=== PATIENT | male | born 2000 | race Caucasian/White ===

== ENCOUNTER 2022-01-27 14:21 | Emergency (ER) | payer SELFPAY ==
--- OUTSIDE RECORDS SUMMARY | 2022-01-27 14:24 | XMS REPORT | Continuity of Care Document ---
:2000 Author Organization [facility] t Address [address] [place] [address] Care Team Providers Name Role Phone Roma Primary Care Physician Satish CLAIRE Attending Clinician Doctor Unassigned, Name Attending Clinician Unavailable SATISH Attending Clinician Unavailable Isai HEWITT Attending Clinician Unavailable Mikael SALES SERVICE REP, R Attending Clinician Isai HEWITT Admitting Clinician Unavailable Problems Condition Condition Condition Status Onset Resolution Last Treating Co mments Source Name Details Category Date Date Treatment Clinician Date No known No known Disease Unive rs active active ity of problems problems [facility] Allergies, Adverse Reactions, Alerts Allergy Allergy Status Severity Reaction(s) Onset Inactive Treating Comm ents Source Name Type Date Date Clinician NO KNOWN Drug Active Univers ALLERGIE Class ity of S [facility] Social History Social Habit Start Date Stop Date Quantity Comments Source Exposure to Not sure [facility] SARS-CoV-2 (event) Medica l Branch Tobacco use and 2021-11-17 2021-11-17 Never used [facility] exposure 00:00:00 00:00:00 [facility] Sex Assigned At [birth year] [facility] 00:00:00 00:00:00 [facility] Branch Smoking Status Start Date Stop Date Source Unknown if ever smoked [facility] Never smoker [facility] Medications Ordered Filled Start Stop Current Ordering Indication Dosage Frequency Signature Comments Components Source Medication Medication Date Date Medication? Clinician (SIG) Name Name benzonatate Yes [id number] 200mg Take 2 Univers 100 mg 3-04 capsules ity of capsule 00:00: by mouth [place] 00 every 8 Medical (eight) Branch hours as needed for Cough. guaiFENesin 2-0 Yes [id number] 400mg Take 1 Univers 400 mg 3-04 tablet by ity of tablet 00:00: mouth [place] 00 every 4 Medical (four) Branch hours as needed for Cough. fluticasone 2021-0 Yes [id number] 2{puff} Inhale 2 Univers propionate 3-04 Puffs ity of (FLOVENT 00:00: every 12 [facility] [place] [facility]) 220 00 (twelve) Medical mcg/actuati hours. Branch on inhaler levocetiriz 2021-0 Yes [id number] 5mg Take 1 Univers ine 5 mg 3-04 tablet by ity of tablet 00:00: mouth [place] 00 every Medical evening. Branch benzonatate 2021-0 Yes [id number] 200mg Take 2 Univers 100 mg 3-04 capsules ity of capsule 00:00: by mouth [place] 00 every 8 Medical (eight) Branch hours as needed for Cough. guaiFENesin 2021-0 Yes [id number] 400mg Take 1 Univers 400 mg 3-04 tablet by ity of tablet 00:00: mouth [place] 00 every 4 Medical (four) Branch hours as needed for Cough. fluticasone 2021-0 Yes [id number] 2{puff} Inhale 2 Univers propionate 3-04 Puffs ity of (FLOVENT 00:00: every 12 [facility] [place] [facility]) 220 00 (twelve) Medical mcg/actuati hours. Branch on inhaler levocetiriz 2021-0 Yes [id number] 5mg Take 1 Univers ine 5 mg 3-04 tablet by ity of tablet 00:00: mouth [place] 00 every Medical evening. Branch montelukast 2021-0 2021- No 10mg 10 mg, Uni vers (SINGULAIR) 10-07 Oral, ity of tablet 10 02:00: 01:28 ONCE, 1 [place] mg [place] :00 dose, On Medical Fri Branch 10/06/21 at 1999, FILIBERTO albuterol 2021-0 2021- No 2{puff} 2 Puff, U nivers (VENTOLIN) 10-07 Inhalation it y of inhaler 2 02:00: 01[place] P[place] :[place] dose, On Medical Fri Branch 10/06/21 at 1999, FILIBERTO guaiFENesin 2021-0 202- No 200mg 200 mg, U nivers 100 mg/5 mL 10-07 Oral, ity of solution 02:00: 01:27 ONCE, 1 [place] 200 mg 00 :00 dose, On Medical Fri Branch 10/06/21 at 1999, FILIBERTO benzonatate 2021-0 2021- No 100mg 100 mg, U nivers (TESSALON 10-07 Oral, ity of PERLES) 02:00: 01:28 ONCE, 1 [place] capsule 100 00 :00 dose, On Medi keon mg Fri Branch 10/06/21 at 1999, FILIBERTO ibuprofen 2021-0 2021- No 800mg 800 mg, Uni vers (IBU) 10-07 Oral, ity of tablet 800 02:00: 01:28 ONCE, 1 [place] mg 00 :00 dose, On Medical Fri Branch 10/06/21 at 1999, FILIBERTO benzonatate 2021-0 Yes [id number] 100mg Take 1 Univers 100 mg 1-21 capsule by ity of capsule 00:00: mouth 3 [place] 00 (three) Medical times Branch daily as needed for Cough. albuterol 2021-0 Yes [id number] 2{puff} Inhale 2 Univers 90 1-21 Puffs ity of mcg/actuati 00:00: every 4 [place] as on inhaler 00 (four) Medical hours as Branch needed for Wheezing or Shortness of Breath. levocetiriz 2021-0 Yes [id number] 5mg Take 1 Univers ine (XYZAL) 1-21 tablet by ity of 5 mg tablet 00:00: mouth [place] 00 every Medical evening. Branch benzonatate 2021-0 Yes [id number] 100mg Take 1 Univers 100 mg 1-21 capsule by ity of capsule 00:00: mouth 3 [place] 00 (three) Medical times Branch daily as needed for Cough. albuterol 2021-0 Yes [id number] 2{puff} Inhale 2 Univers 90 1-21 Puffs ity of mcg/actuati 00:00: every 4 [place] as on inhaler 00 (four) Medical hours as Branch needed for Wheezing or Shortness of Breath. levocetiriz 2021-0 Yes [id number] 5mg Take 1 Univers ine (XYZAL) 1-21 tablet by ity of 5 mg tablet 00:00: mouth [place] 00 every Medical evening. Branch albuterol Yes [id number] 2{puff} Inhale 2 Univers 90 1-21 Puffs ity of mcg/actuati 00:00: every 4 [place] as on inhaler 00 (four) Medical hours as Branch needed for Wheezing or Shortness of Breath. albuterol Yes [id number] 2{puff} Inhale 2 Univers 90 1-21 Puffs ity of mcg/actuati 00:00: every 4 [place] as on inhaler 00 (four) Medical hours as Branch needed for Wheezing or Shortness of Breath. azithromyci 2021- No [id number] Take 2 Univers n 250 mg 10-06 tablets by ity of tablet 00:00: 05:59 mouth [place] 00 :00 daily for Medical 1 day, Branch THEN 1 tablet daily for 4 days. Vital Signs Vital Name Observation Time Observation Value Comments Source Systolic blood 2021-10-07 02:06:36 116 [facility] Diastolic blood 2021-10-07 02:06:36 89 mm[Hg] [facility] Heart rate 2021-10-07 02:06:36 75 /min [facility] Respiratory rate 2021-10-07 02:06:36 17 /min [facility] Oxygen saturation in 2021-10-07 02:06:36 98 /min [facility] Arterial blood by [facility] Pulse oximetry Branch Body temperature 2021-10-07 00:52:00 36.89 [facility] Body weight 2021-10-07 00:52:00 99.791 kg [facility] Procedures Procedure Date / Time Performing Clinician Source Performed AUTHORIZATION FOR 2021-11-26 06:01:00 [facility]igned, [facility] [place] [facility] Name Medical Branch CONSENT/REFUSAL FOR 2021-11-17 16:20:33 Doctor Unassigned, No [facility] [place] [facility] Name Medical Branch XR CHEST 2 VW 2021-10-07 01:09:47 Antonia Hewitt Rheems o [facility] [place] [facility] NOTICE OF PRIVACY 2021-10-07 00:49:17 Doctor Unassigned, No [facility] [place] PR[facility] Name [facility] Branch CONSENT/REFUSAL FOR 2021-10-07 00:47:37 Doctor Unassigned, [facility] [place] [facility] Name [facility] Encounters Start End Encounter Admission Attending Care Care Encounter Source Date/Time Date/Time Type Type Clinicians Facility Department ID 2022-01-03 2022-01-03 Joe Satish [facility] [id number] Univers 00:00:00 00:00:00 [facility] [id number] it y of [place] [id number] Cy as SIRISHA?BLEA [id number] [address] MEDICAL OFFICE BUILDING 2021-11-26 2021-11-26 Orders Doctor JOSE L [id number] Univers 00:00:00 00:00:00 Only Unassigned, JEROME [id number] [place] [facility] [id number] Cy as [phone] [facility] 009 Branch 2021-11-17 2021-11-17 Outpatient R SATISH [facility] [id number] Univers 10:20:00 10:34:37 PABLO ity of [facility] 2021-11-17 2021-11-17 Orders Doctor DOMINGO [id number] Univers 00:00:00 00:00:00 Only Unassigned, JEROME [id number] [place] [facility] [id number] Cy as [phone] [facility] 009 Branch 2021-10-06 2021-10-06 Emergency X [facility] ERT [id number] Univers 18:55:00 20:10:00 KATTOM ity of [facility] 2021-10-06 2021-10-06 Emergency [facility] [id number] Univers 18:55:00 20:10:00 Antonia BHATTI [id number] i ty [place] [id number] [place] [phone] [place] [address] Branch Results This patient has no known results.
--- NOTE | 2022-01-27 16:10 | RAD REPORT ---
EXAM DESCRIPTION: RAD - Chest Single View - 01/27/2022 4:04 pm CLINICAL HISTORY: Congestion COMPARISON: <Comparisons> FINDINGS: Lines: None. Lungs: Mildly consolidative process in the left upper lobe. Pleural: No significant pleural effusions or pneumothorax. Cardiac: The heart size is within normal limits. Bones: No acute fractures. Other: IMPRESSION: Findings concerning for a mild left upper lobe pneumonia. Recommend 6 week follow-up [facility] [facility] radiograph, however, to ensure resolution.
--- NOTE | 2022-01-27 16:21 | ER ---
Nurse's Notes [facility] Name: Holger Lee Age: 21 yrs Sex: Male : 2000 Arrival Date: 01/27/2022 Time: 14:22 Bed Treatment Private MD: Artie Brandon Diagnosis: Pneumonia, unspecified organism Presentation: 01/27 14:48 Chief complaint: Patient states: cough over past 5 months, has been in and out of ER , iw diagnosed with chronic bronchitis, this flare up started Saturday. Coronavirus screen: Client presents with at least one sign or symptom that may indicate coronavirus-19. Ebola Screen: Patient negative for fever greater than or equal to 101.5 degrees Fahrenheit, and additional compatible Ebola Virus Disease symptoms Patient denies exposure to infectious person. Patient denies travel to an Ebola-affected area in the 21 days before illness onset. No symptoms or risks identified at this time. Initial Sepsis Screen: Does the patient meet any 2 criteria? No. Patient's initial sepsis screen is negative. Does the patient have a suspected source of infection? No. Patient's initial sepsis screen is negative. Risk Assessment: Do you want to hurt yourself or someone else? Patient reports no desire to harm self or others. Onset of symptoms was September 2021. 14:48 Method Of Arrival: Ambulatory iw 14:48 Acuity: RUBY 3 iw Historical: - Allergies: 14:49 No Known Allergies; iw - Home Meds: 14:49 None [Active]; iw - PMHx: 14:49 Bronchitis; iw - Social history:: Smoking status: Patient denies any tobacco usage or history of. Assessment: 16:43 Reassessment: Patient appears in no apparent distress at this time. Patient and/or iw family updated on plan of care and expected duration. Pain level reassessed. Patient is alert, oriented x 3, equal unlabored respirations, skin warm/dry/pink. Vital Signs: 14:49 BP 101 / 69; Pulse 125; Resp 20 S; Temp 97.2; Pulse Ox 96% on R/A; Weight 99.79 kg; iw Height 5 ft. 10 in. (177.80 cm); 16:43 BP 109 / 65; Pulse 102; Resp 18 S; Pulse Ox 98% on R/A; iw 14:49 Body Mass Index 31.57 (99.79 kg, 177.80 cm) iw ED Course: 14:22 Patient arrived in ED. am2 14:22 Artie Brandon MD is Private Physician. am2 14:49 Triage completed. iw 14:49 Arm band placed on. iw 15:26 Agatha Gonzales PA is PHCP. en 15:26 Nicole Goddard MD is Attending Physician. en 15:47 Lilliam Gipson RN is Primary Nurse. iw 16:05 CXR XRAY In Process Unspecified. EDMS 16:20 Artie Brandon MD is Referral Physician. en 16:44 No provider procedures requiring assistance completed. Patient did not have IV access iw during this emergency room visit. Administered Medications: 16:34 Drug: Albuterol HFA Inhaler 2 puffs Route: Inhalation; iw 16:34 Drug: predniSONE 40 mg Route: PO; iw 16:50 Follow up: Response: No adverse reaction iw 16:34 Drug: Augmentin (Amoxicillin-Clavulanate) 500 mg Route: PO; iw 16:45 Follow up: Response: No adverse reaction iw Outcome: 16:20 Discharge ordered by MD. en 16:57 Patient left the ED. iw Signatures: Dispatcher [employer] EDMS Lilliam Gipson RN RN Rebecca Mackenzie am2 Agatha Gonzales PA PA en Corrections: (The following items were deleted from the chart) 14:52 14:49 BP 159 / 110; Pulse 125bpm; Resp 20bpm; Spontaneous; Pulse Ox 96% RA; Temp 97.2F; iw 99.79 kg; Height 5 ft. 10 in.; BMI: 31.5; iw
--- NOTE | 2022-01-27 16:21 | EDPHYS ---
Physician Documentation [facility] Name: Holger Lee Age: 21 yrs Sex: Male : 2000 Arrival Date: 01/27/2022 Time: 14:22 Bed Treatment Private MD: Artie Brandon ED Physician Nicole Gdodard HPI: 01/27 16:07 This 21 yrs old Male presents to ER via Ambulatory with complaints of Cough. en 16:07 The patient or guardian reports cough. Onset: The symptoms/episode began/occurred en yesterday. Severity of symptoms: At their worst the symptoms were moderate. Modifying factors: The symptoms are alleviated by nothing, the symptoms are aggravated by nothing. Associated signs and symptoms: Pertinent positives: sore throat, postnasal drainage, this patient has no pertinent positive symptoms Pertinent negatives: fever. The patient has experienced similar episodes in the past. The patient has not recently seen a physician. 21 yo M presents to ED with cough x 2 day and sinus drainage. Pt reports previous bronchitis with prolonged RAD requiring HFAs. Stopped using inhalers a couple of weeks ago and cough returned yesterday. Chest sore from cough, no wheezing but chest tight. No F/C/n/V.. Historical: - Allergies: 14:49 No Known Allergies; iw - Home Meds: 14:49 None [Active]; iw - PMHx: 14:49 Bronchitis; iw - Social history:: Smoking status: Patient denies any tobacco usage or history of. ROS: 16:07 Constitutional: Negative for fever, chills, and weight loss. en 16:07 ENT: Positive for postnasal drainage. 16:07 Cardiovascular: Negative for chest pain, palpitations. 16:07 Respiratory: Positive for cough, pleurisy, shortness of breath. 16:07 All other systems are negative. Exam: 16:07 Constitutional: This is a well developed, well nourished patient who is awake, alert, en and in no acute distress. 16:07 Eyes: Exam is negative for erythema, exudate. 16:07 ENT: External ear(s): Ear canal(s): TM's: Nose: Posterior pharynx: 16:07 Neck: supple. 16:07 Cardiovascular: Rate: tachycardic, tachcyardia with active coughing, Rhythm: regular, Pulses: no pulse deficits are appreciated, Heart sounds: murmur, not appreciated, rub, not appreciated, gallop, not appreciated, Edema: is not appreciated. 16:07 Respiratory: shallow breaths 2/2 cough, prolonged expiratory phase without wheezing, no accessory muscle use, harsh, deep cough. No stridor or accessory muscle use. . 16:07 Abdomen/GI: Palpation: soft, nontender. 16:07 Skin: no rash present. 16:07 Neuro: Orientation: is normal, appropriate for stated age, to person, place \\T\\ time. Vital Signs: 14:49 BP 101 / 69; Pulse 125; Resp 20 S; Temp 97.2; Pulse Ox 96% on R/A; Weight 99.79 kg; iw Height 5 ft. 10 in. (177.80 cm); 16:43 BP 109 / 65; Pulse 102; Resp 18 S; Pulse Ox 98% on R/A; iw 14:49 Body Mass Index 31.57 (99.79 kg, 177.80 cm) iw MDM: 16:07 Differential Diagnosis: Bronchitis Influenza Upper Respiratory Infection Sinusitis en Allergic Rhinitis Asthma Exacerbation Viral Syndrome Pneumonia Other COVID. Data reviewed: vital signs, nurses notes, radiologic studies, and as a result, I will discharge patient, will give albuterol tx and steroids, no respiratory distress. 16:15 ED course: CXR c/w PNA. NO respiratory distress. Will give 1st dose of po augmentin in en ED and d/c home. Will refill albuterol q4h, tessalon perles, augmentin x 10d, and prednisone. PCP f/u. 16:20 Patient medically screened. en 01/27 14:51 Order name: COVID-19 (Coronavirus) Document "Date of Onset" if Symptomatic iw 01/27 14:51 Order name: Flu; Complete Time: 16:07 iw 01/27 14:52 Order name: CXR XRAY; Complete Time: 16:14 iw 01/27 14:57 Order name: SARS-COV-2 RT PCR (Document "Date of Onset" if Symptomatic) iw Administered Medications: 16:34 Drug: Albuterol HFA Inhaler 2 puffs Route: Inhalation; iw 16:34 Drug: predniSONE 40 mg Route: PO; iw 16:50 Follow up: Response: No adverse reaction iw 16:34 Drug: Augmentin (Amoxicillin-Clavulanate) 500 mg Route: PO; iw 16:45 Follow up: Response: No adverse reaction iw Disposition: 18:02 Co-signature as Attending Physician, Nicole Goddard MD. ma2 Disposition Summary: 01/27/22 16:20 Discharge Ordered Location: Home en Condition: Stable en Diagnosis - Pneumonia, unspecified organism en Followup: en - With: Artie Brandon MD - When: 1 - 2 days - Reason: Discharge Instructions: - Discharge Summary Sheet en - Community-Acquired Pneumonia, Adult en - Form - Excuse from Work, School, or Physical Activity en Forms: - Medication Reconciliation Form en - Thank You Letter en - Antibiotic Education en - Prescription Opioid Use en Prescriptions: - albuterol sulfate 90 mcg/actuation Inhalation aerosol powdr breath activated - inhale 2 puff by INHALATION route every 4 hours for 2 days; 1 Inhaler; Refills: en 0, Product Selection Permitted - Augmentin 500-125 mg Oral Tablet - take 1 tablet by ORAL route every 8 hours for 10 days; 30 tablet; Refills: 0, en Product Selection Permitted - Tessalon Perles 100 mg Oral Capsule - take 1 capsule by ORAL route every 8 hours As needed; 15 capsule; Refills: 0, en Product Selection Permitted - Prednisone 20 mg Oral Tablet - take 2 tablets by ORAL route once daily for 5 days; 10 tablet; Refills: 0, en Product Selection Permitted Signatures: Dispatcher [employer] Lilliam Urias RN RN iw Alzahri, Mohammad, MD MD ma2 Agatha Gonzales PA PA en Corrections: (The following items were deleted from the chart) 15:28 15:26 Chest Single View+[email or web address] ordered. EDMS EDMS
[2022-01-27] MEDS ORDERED: AMOXICILLIN TRIHYDR 250 MG CAP ONE (16:33)
[2022-01-27] MEDS ORDERED: predniSONE 20 MG TAB ONE (16:33)
[2022-01-27] MEDS ORDERED: ALBUTEROL INHALER 60 PUFF/8 GM IH ONE (16:33)
[2022-01-27 20:36] VITALS: TEMP 97.2
[2022-01-27 20:42] VITALS: BP 109/65; O2SAT 98
== END 2022-01-27 16:57 | disposition home or self-care (01) ==
LOC: ER 14:21
DX: J18.9 Pneumonia, unspecified organism (principal); Z20.822 Contact with and (suspected) exposure to COVID-19
CPT/HCPCS: 71045; 87804; 99284; J7512; U0003

== ENCOUNTER 2022-02-23 07:53 | Emergency (ER) | payer SELFPAY ==
--- OUTSIDE RECORDS SUMMARY | 2022-02-23 07:55 | XMS REPORT | Continuity of Care Document ---
:2000 Author Organization [facility] t Address [address] [place] [address] Dr. Green [address] [place] [id number] Care Team Providers Name Role Phone Roma Primary Care Physician Satish CLAIRE Attending Clinician Doctor Unassigned, Name Attending Clinician Unavailable SATISH Attending Clinician Unavailable Isai HEWITT Attending Clinician Unavailable Kash BARTH R Attending Clinician Isai HEWITT Admitting Clinician Unavailable Problems Condition Condition Condition Status Onset Resolution Last Treating Co mments Source Name Details Category Date Date Treatment Clinician Date No known No known Disease Unive rs active active ity of problems problems [facility] Allergies, Adverse Reactions, Alerts Allergy Allergy Status Severity Reaction(s) Onset Inactive Treating Comm ents Source Name Type Date Date Clinician NO KNOWN Drug Active Univers ALLERGIE Class ity of S [facility] Social History Social Habit Start Date Stop Date Quantity Comments Source Exposure to Not sure [facility] SARS-CoV-2 (event) Medica l Branch Tobacco use and 2021-11-17 2021-11-17 Never used [facility] exposure 00:00:00 00:00:00 [facility] Sex Assigned At [birth year] [facility] 00:00:00 00:00:00 [facility] Smoking Status Start Date Stop Date Source Unknown if ever smoked [facility] Never smoker [facility] Medications Ordered Filled Start Stop Current Ordering Indication Dosage Frequency Signature Comments Components Source Medication Medication Date Date Medication? Clinician (SIG) Name Name benzonatate Yes [id number] 200mg Take 2 Univers 100 mg 3-04 capsules ity of capsule 00:00: by mouth [place] 00 every 8 Medical (eight) Branch hours as needed for Cough. guaiFENesin 2021-0 Yes [id number] 400mg Take 1 Univers 400 mg 3-04 tablet by ity of tablet 00:00: mouth [place] 00 every 4 Medical (four) Branch hours as needed for Cough. fluticasone 2021-0 Yes [id number] 2{puff} Inhale 2 Univers propionate 3-04 Puffs ity of (FLOVENT 00:00: every 12 [facility] [place] [facility]) 220 00 (twelve) Medical mcg/actuati hours. Branch on inhaler levocetiriz 2021-0 Yes [id number] 5mg Take 1 Univers ine 5 mg 3-04 tablet by ity of tablet 00:00: mouth [place] 00 every Medical evening. Branch benzonatate 2021-0 Yes [id number] 200mg Take 2 Univers 100 mg 3-04 capsules ity of capsule 00:00: by mouth [place] 00 every 8 Medical (eight) Branch hours as needed for Cough. guaiFENesin 2021-0 Yes [id number] 400mg Take 1 Univers 400 mg 3-04 tablet by ity of tablet 00:00: mouth [place] 00 every 4 Medical (four) Branch hours as needed for Cough. fluticasone 2021-0 Yes [id number] 2{puff} Inhale 2 Univers propionate 3-04 Puffs ity of (FLOVENT 00:00: every 12 [facility] [place] [facility]) 220 00 (twelve) Medical mcg/actuati hours. Branch on inhaler levocetiriz 2021-0 Yes [id number] 5mg Take 1 Univers ine 5 mg 3-04 tablet by ity of tablet 00:00: mouth [place] 00 every Medical evening. Branch montelukast 0 2021- No 10mg 10 mg, Uni vers (SINGULAIR) 10-07 Oral, ity of tablet 10 02:00: 01:28 ONCE, 1 [place] mg [place] :00 dose, On Medical Fri Branch 10/06/21 at 2000, FILIBERTO albuterol 2021-0 2021- No 2{puff} 2 Puff, U nivers (VENTOLIN) 10-07 Inhalation it y of inhaler 2 02:00: 01[place] Puff [place] :[place] dose, On Medical Fri Branch 10/06/21 at 1999, FILIBERTO guaiFENesin 2021-0 2021- No 200mg 200 mg, U nivers 100 mg/5 mL 10-07 Oral, ity of solution 02:00: 01:27 ONCE, 1 [place] 200 mg 00 :00 dose, On Medical Fri Branch 10/06/21 at 1999, FILIBERTO benzonatate 0 2021- No 100mg 100 mg, U nivers (TESSALON 10-07 Oral, ity of PERLES) 02:00: 01:28 ONCE, 1 [place] capsule 100 00 :00 dose, On Medi keon mg Fri Branch 10/06/21 at 1999, FILIBERTO ibuprofen 2021- No 800mg 800 mg, Uni vers (IBU) 10-07 Oral, ity of tablet 800 02:00: 01:28 ONCE, 1 [place] mg 00 :00 dose, On Medical Fri Branch 10/06/21 at 1999, FILIBERTO benzonatate 0 Yes [id number] 100mg Take 1 Univers 100 mg 1-21 capsule by ity of capsule 00:00: mouth 3 [place] 00 (three) Medical times Branch daily as needed for Cough. albuterol 0 Yes [id number] 2{puff} Inhale 2 Univers 90 1-21 Puffs ity of mcg/actuati 00:00: every 4 [place] as on inhaler 00 (four) Medical hours as Branch needed for Wheezing or Shortness of Breath. levocetiriz 2021-0 Yes [id number] 5mg Take 1 Univers ine (XYZAL) 1-21 tablet by ity of 5 mg tablet 00:00: mouth [place] 00 every Medical evening. Branch benzonatate 0 Yes [id number] 100mg Take 1 Univers 100 mg 1-21 capsule by ity of capsule 00:00: mouth 3 [place] 00 (three) Medical times Branch daily as needed for Cough. albuterol 2021-0 Yes [id number] 2{puff} Inhale 2 Univers 90 1-21 Puffs ity of mcg/actuati 00:00: every 4 [place] as on inhaler 00 (four) Medical hours as Branch needed for Wheezing or Shortness of Breath. levocetiriz 2021-0 Yes [id number] 5mg Take 1 Univers ine (XYZAL) -21 tablet by ity of 5 mg tablet 00:00: mouth [place] 00 every Medical evening. Branch albuterol Yes [id number] 2{puff} Inhale 2 Univers 90 1-21 Puffs ity of mcg/actuati 00:00: every 4 [place] as on inhaler 00 (four) Medical hours as Branch needed for Wheezing or Shortness of Breath. albuterol Yes [id number] 2{puff} Inhale 2 Univers 90 1-21 Puffs ity of mcg/actuati 00:00: every 4 [place] as on inhaler 00 (four) Medical hours as Branch needed for Wheezing or Shortness of Breath. azithromyci 2021- No [id number] Take 2 Univers n 250 mg 10-06 tablets by ity of tablet 00:00: 05:59 mouth [place] 00 :00 daily for Medical 1 day, Branch THEN 1 tablet daily for 4 days. Vital Signs Vital Name Observation Time Observation Value Comments Source Systolic blood 2021-10-07 02:06:36 116 mm[Hg] [facility] Diastolic blood 2021-10-07 02:06:36 89 mm[Hg] [facility] Heart rate 2021-10-07 02:06:36 75 /min [facility] Respiratory rate 2021-10-07 02:06:36 17 /min [facility] Oxygen saturation in 2021-10-07 02:06:36 98 /min [facility] Arterial blood by [facility] Pulse oximetry Branch Body temperature 2021-10-07 00:52:[address] [facility] Body weight 2021-10-07 00:52:00 99.791 kg [facility] Procedures Procedure Date / Time Performing Clinician Source Performed AUTHORIZATION FOR 2021-11-26 06:01:00 Doctor Unassigned, No Univ [facility] RELEASE OF PHI Name [facility] CONSENT/REFUSAL FOR 2021-11-17 16:20:33 [facility] Medical [place] XR CHEST 2 VW 2021-10-07 01:09:47 Nona Hewitt University o f [facility] NOTICE OF PRIVACY 2021-10-07 00:49:17 Doctor Unassigned, No Univ [facility] PRACTICES Name [facility] CONSENT/REFUSAL FOR 2021-10-07 00:47:37 Doctor Unassigned, No [facility] Encounters Start End Encounter Admission Attending Care Care Encounter Source Date/Time Date/Time Type Type Clinicians Facility Department ID 2022-01-03 2022-01-03 Joe Covarrubias [email or web address] [id number] Univers 00:00:00 00:00:00 Pablogumaro GARCIA [id number] it y of [place] [facility] [id number] Cy as SIRISHA?BLEA [id number] [address] MEDICAL OFFICE BUILDING 2021-11-26 2021-11-26 Orders Doctor JOSE L [id number] Univers 00:00:00 00:00:00 Only Unassigned, JEROME [id number] ity of [facility] [id number] Cy as [id number] [address] 2021-11-17 2021-11-17 Shazia R SATISH [facility] [id number] Univers 10:20:00 10:34:37 PABLO marky [facility] 2021-11-17 2021-11-17 Orders Doctor DOMINGO [id number] Univers 00:00:00 00:00:00 Only Unassigned, JEROME [id number] ity of [facility] [id number] Cy as [phone] [address] 2021-10-06 2021-10-06 Emergency [facility] [id number] Univers 18:55:00 20:10:00 NONA sánchez [facility] 2021-10-06 2021-10-06 [facility] [id number] Univers 18:55:00 20:10:00 Nona BHATTI [id number] i ty of [place] [id number] [place] [facility] [phone] Medi keon 084 Branch Results This patient has no known results.
[2022-02-23] MEDS ORDERED: LEVALBUTEROL 1.25 MG/3 ML NEB ONE (08:29)
--- NOTE | 2022-02-23 09:58 | RAD REPORT ---
EXAM DESCRIPTION: Alecia Single View02/23/2022 8:28 am CLINICAL HISTORY: Chest pain COMPARISON: January 2022 FINDINGS: Lungs are mildly hyperaerated. The lungs appear clear of acute infiltrate. The heart is normal size IMPRESSION: No acute abnormalities displayed
--- NOTE | 2022-02-23 10:57 | EDPHYS ---
Physician Documentation [facility] Name: Holger Lee Age: 21 yrs Sex: Male : 2000 Arrival Date: 02/23/2022 Time: 07:55 Bed 25 Private MD: ED Physician Marlon Solomon HPI: 02/23 08:09 This 21 yrs old Male presents to ER via Ambulatory with complaints of Cough, Shortness jmm Of Breath. 08:09 Onset: The symptoms/episode began/occurred gradually, 6 month(s) ago. This is a 21 year jmm old male with a history of bronchitis that presents to the ED with complaints of cough beginning approx 6 months ago. Patient was evaluated in the ED 2 weeks prior and diagnosed with pneumonia. patient continues to have a cough with midsternal chest pain on cough. Denies fever. patient is currently under the care of Dr. Bello. Has used trilogy with no relief. . Historical: - Allergies: 08:06 No Known Allergies; tw2 - Home Meds: 08:06 None [Active]; tw2 - PMHx: 08:06 Bronchitis; tw2 - PSHx: 08:06 None; tw2 - Immunization history:: Client reports receiving the 2nd dose of the Covid vaccine. - Social history:: Smoking status: Patient denies any tobacco usage or history of. ROS: 08:09 Constitutional: Negative for fever, chills, and weight loss. jmm 08:09 Cardiovascular: Positive for chest pain, with cough. 08:09 Respiratory: Positive for cough. 08:09 All other systems are negative. Exam: 08:09 Constitutional: This is a well developed, well nourished patient who is awake, alert, jmm and in no acute distress. Head/Face: atraumatic. Eyes: EOMI, no conjunctival erythema appreciated ENT: Moist Mucus Membranes Neck: Trachea midline, Supple Chest/axilla: Normal chest wall appearance and motion. 08:09 Abdomen/GI: Non distended, soft Back: Normal ROM Skin: General appearance color normal 08:09 Cardiovascular: Rate: normal, Rhythm: regular. 08:09 Respiratory: the patient does not display signs of respiratory distress, Respirations: normal, Breath sounds: are clear throughout. 08:09 Musculoskeletal/extremity: ROM: intact in all extremities. 08:09 Skin: Appearance: Color: normal in color. 08:09 Neuro: Motor: is normal. 08:09 Psych: Behavior/mood is pleasant, cooperative. Vital Signs: 08:05 Pulse 102; Resp 20; Temp 97.9(TE); Pulse Ox 99% on R/A; Weight 99.79 kg (R); Height 5 tw2 ft. 10 in. (177.80 cm); 08:23 BP 122 / 85; tw2 09:15 BP 109 / 86; Pulse 99; Resp 18; Pulse Ox 100% ; ww 10:00 BP 103 / 68; Pulse 92; Resp 18; Pulse Ox 100% ; ww 11:19 BP 110 / 88; Pulse 81; Resp 16; Pulse Ox 98% on R/A; ww 08:05 Body Mass Index 31.57 (99.79 kg, 177.80 cm) tw2 MDM: 08:09 Patient medically screened. rosalia 10:55 Data reviewed: vital signs, nurses notes. Counseling: I had a detailed discussion with karo the patient and/or guardian regarding: the historical points, exam findings, and any diagnostic results supporting the discharge/admit diagnosis, lab results, radiology results, the need for outpatient follow up, to return to the emergency department if symptoms worsen or persist or if there are any questions or concerns that arise at home. ED course: CXR clear, Patient advised to follow up with Dr. Bello for reevaluation. patient otherwise given strict return precautions. patient understood and agrees with the plan of care. . 02/23 08:15 Order name: Influenza Screen (a \\T\\ B); Complete Time: 09:55 [facility] 02/23 08:15 Order name: SARS-COV-2 RT PCR (Document "Date of Onset" if Symptomatic); Complete Time: [facility] 10:18 02/23 08:17 Order name: Chest Single View XRAY; Complete Time: 09:59 [facility] 02/23 08:35 Order name: Labs - recollect needed: flu swab/ no patient label on swab; Complete Time: 08:52 Administered Medications: 08:28 Drug: Xopenex (levalbuterol) (3) 1.25 mg Route: Inhalation; ww 10:59 Drug: Decadron (dexamethasone) 10 mg Route: IM; Site: right gluteus; ww Disposition Summary: 02/23/22 10:57 Discharge Ordered Location: Home jmm Condition: Stable jmm Diagnosis - Cough jmm Followup: jmm - With: Blue Bello MD - When: 2 - 3 days - Reason: Recheck today's complaints, Continuance of care, Re-evaluation by your physician Discharge Instructions: - Discharge Summary Sheet jmm - Cough, Adult jmm Forms: - Medication Reconciliation Form jmm - Thank You Letter m - Antibiotic Education m - Prescription Opioid Use m - Work release form ww Prescriptions: - promethazine-DM - take 5 milliliter by ORAL route every 4 hours As needed; 120 milliliter; jmm Refills: 0, Product Selection Permitted Signatures: Dispatcher [employer] EDMarlon Skaggs MD MD cha Mickail, Joel, PA PA jmm Wise, Tara, RN RN tw2 Agatha Munoz Whitney, RN RN ww
--- NOTE | 2022-02-23 10:57 | ER ---
Nurse's Notes [facility] Name: Holger Lee Age: 21 yrs Sex: Male : 2000 Arrival Date: 02/23/2022 Time: 07:55 Bed 25 Private MD: Diagnosis: Cough Presentation: 02/23 08:05 Chief complaint: Patient states: 2 weeks with coughing, it feels like it is seizing up tw2 when i breathe in. Coronavirus screen: Client presents with at least one sign or symptom that may indicate coronavirus-19. Standard/surgical mask placed on the client. Provider contacted for isolation considerations. Ebola Screen: Patient denies travel to an Ebola-affected area in the 21 days before illness onset. Initial Sepsis Screen: Does the patient meet any 2 criteria? HR > 90 bpm. Does the patient have a suspected source of infection? No. Patient's initial sepsis screen is negative. Risk Assessment: Do you want to hurt yourself or someone else? Patient reports no desire to harm self or others. Onset of symptoms was February 23, 2022. 08:05 Method Of Arrival: Ambulatory tw2 08:05 Acuity: RUBY 3 tw2 Triage Assessment: 08:07 General: Appears uncomfortable, Behavior is appropriate for age. Pain: Complains of tw2 pain in chest. Respiratory: Reports shortness of breath cough that is non-productive, persistent Onset: The symptoms/episode began/occurred 2 weeks worsening, the patient has mild shortness of breath. Historical: - Allergies: 08:06 No Known Allergies; tw2 - Home Meds: 08:06 None [Active]; tw2 - PMHx: 08:06 Bronchitis; tw2 - PSHx: 08:06 None; tw2 - Immunization history:: Client reports receiving the 2nd dose of the Covid vaccine. - Social history:: Smoking status: Patient denies any tobacco usage or history of. Screenin:23 Abuse screen: Denies threats or abuse. Nutritional screening: No deficits noted. tw2 Tuberculosis screening: No symptoms or risk factors identified. Fall Risk None identified. Assessment: 08:40 General: Appears uncomfortable, Behavior is cooperative. Neuro: Level of Consciousness ww is awake, alert, obeys commands, Oriented to person, place, time, situation, Moves all extremities. Speech is normal. Cardiovascular: Patient's skin is warm and dry. Rhythm is regular. Respiratory: Reports cough that is Airway is patent Respiratory effort is unlabored, Respiratory pattern is symmetrical. GI: No signs and/or symptoms were reported involving the gastrointestinal system. : No signs and/or symptoms were reported regarding the genitourinary system. Derm: Skin is intact, is healthy with good turgor. 10:13 Reassessment: Patient appears in no apparent distress at this time. No changes from ww previously documented assessment. Patient and/or family updated on plan of care and expected duration. Pain level reassessed. Patient is alert, oriented x 3, equal unlabored respirations, skin warm/dry/pink. Vital Signs: 08:05 Pulse 102; Resp 20; Temp 97.9(TE); Pulse Ox 99% on R/A; Weight 99.79 kg (R); Height 5 tw2 ft. 10 in. (177.80 cm); 08:23 BP 122 / 85; tw2 09:15 BP 109 / 86; Pulse 99; Resp 18; Pulse Ox 100% ; ww 10:00 BP 103 / 68; Pulse 92; Resp 18; Pulse Ox 100% ; ww 11:19 BP 110 / 88; Pulse 81; Resp 16; Pulse Ox 98% on R/A; ww 08:05 Body Mass Index 31.57 (99.79 kg, 177.80 cm) tw2 ED Course: 07:55 Patient arrived in ED. as 08:05 Flavio Zacarias PA is PHCP. [facility] 08:05 Marlon Solomon MD is Attending Physician. [facility] 08:06 Triage completed. tw2 08:06 Arm band placed on. tw2 08:07 Bed in low position. Call light in reach. Pulse ox on. NIBP on. tw2 08:09 Colleen Boyd, RN is Primary Nurse. ww 08:30 Chest Single View XRAY In Process Unspecified. EDMS 09:15 No provider procedures requiring assistance completed. Patient did not have IV access ww during this emergency room visit. 10:57 Blue Bello MD is Referral Physician. [facility] Administered Medications: 08:28 Drug: Xopenex (levalbuterol) (3) 1.25 mg Route: Inhalation; ww 10:59 Drug: Decadron (dexamethasone) 10 mg Route: IM; Site: right gluteus; ww Medication: 08:24 VIS not applicable for this client. tw2 Outcome: 10:57 Discharge ordered by MD. huddleston 11:19 Discharged to home ambulatory. ww 11:19 Condition: stable 11:19 Discharge instructions given to patient, Instructed on discharge instructions, follow up and referral plans. medication usage, safety practices, Demonstrated understanding of instructions, follow-up care, medications, Prescriptions given X 1. 11:20 Patient left the ED. ww Signatures: Dispatcher [employer] EDMS Flavio Zacarias PA PA jmm Martinez, Amelia as Wise, Tara, RN RN tw2 Colleen Boyd RN RN ww
[2022-02-23] MEDS ORDERED: dexAMETHasone 10 MG/ML VIAL ONE (11:02)
[2022-02-23 11:33] VITALS: TEMP 97.9
[2022-02-23 11:40] VITALS: BP 110/88; O2SAT 98
== END 2022-02-23 11:20 | disposition home or self-care (01) ==
LOC: ER 07:53
DX: R05.9 Cough, unspecified (principal); R06.02 Shortness of breath; J40 Bronchitis, not specified as acute or chronic; J18.9 Pneumonia, unspecified organism; Z20.822 Contact with and (suspected) exposure to COVID-19
CPT/HCPCS: 71045; 87804; 96372; 99284; J1100; U0003

== ENCOUNTER 2025-04-25 07:09 | Emergency (ER) | payer BC ==
[2025-04-25] MEDS ORDERED: ONDANSETRON 4 MG/2 ML VIAL ONE (07:52)
[2025-04-25] MEDS ORDERED: FAMOTIDINE 20 MG/2 ML VIAL IV ONE (07:52)
[2025-04-25] MEDS ORDERED: NA CHLORIDE 0.9% 1,000 ML ONE (07:52)
[2025-04-25] MEDS ORDERED: MORPHINE 4 MG/ML SYR ONE (07:52)
[2025-04-25 08:02] LABS: Absolute Lymphocytes (CBC) 2.0 K/uL (0.7-4.9); Hematocrit 47.5 % (39.6-49.0); Hemoglobin 16.2 g/dL (13.6-17.9); MCH 29.8 pg (27.0-35.0); MCHC 34.2 g/dL (32.0-36.0); MCV 87.1 fL (80-100); MPV 8.7 fL (7.6-11.3); Nucleated RBC Absolute Count 0.0 (0-0); Nucleated Red Blood Cells % 0.3 % (0-0); RBC Red Blood Cell Count 5.45 M/uL (4.33-5.43); White Blood Count 5.90 thou/uL (4.3-10.9)
[2025-04-25 08:37] LABS: ALT/SGPT 45.0 U/L (16-61); AST/SGOT 20.0 U/L (15-37); Albumin 4.4 g/dL (3.4-5.0); Albumin/Globulin Ratio 1.3 (1.1-1.8); Alkaline Phosphatase 99.0 U/L (45-117); Anion Gap 8.9 mEq/L (5.0-15.0); BUN Blood Urea Nitrogen 9.0 mg/dL (7-18); Globulin 3.4 g/dL (2.3-3.5); Glucose Level 92.0 mg/dL (74-106); Lipase 25.0 U/L (13-75); Potassium 3.9 mEq/L (3.5-5.1)
--- NOTE | 2025-04-25 09:05 | RAD REPORT ---
EXAMINATION: Abdomen Pelvis W Contrast CLINICAL INDICATION: Male, 24 years old.ABD PAIN TECHNIQUE: CT abdomen and pelvis was performed, after the administration of IV contrast, [facility]. Axial, sagittal and coronal reconstructions were obtained. One or more of the following dose reduction techniques were used: Automated exposure control, adjustment of the mA and/o r kV according to patient size, and/or iterative reconstruction. Unless otherwise specified, incidental findings do not require dedicated imaging follow-up. [id number]. COMPARISON: No prior exams FINDINGS: LOWER CHEST: No acute process identified.Mild cardiomegaly. Mild circumferential thickening of the di stal esophagus which could reflect esophagitis. UPPER GI: No significant abnormality. LIVER: Hepatic steatosis, but otherwise unremarkable. GALLBLADDER/BILE DUCTS: No biliary ductal dilatation.? PANCREAS: No mass, ductal dilation, or giovany-pancreatic fluid. SPLEEN: Unremarkable. ADRENALS: No adrenal masses. KIDNEYS AND URETERS: No hydronephrosis.No suspicious renal mass.No renal calculi.No ureteral calculi. ABDOMINAL AORTA AND OTHER VESSELS: Normal caliber aorta and IVC. PERITONEUM: No abnormal free fluid. No free air. LYMPH NODES: No pathologic lymphadenopathy. ABDOMINAL WALL: Small fat containing umbilical hernia. SMALL BOWEL/COLON: Small bowel has normal course and caliber. No colonic wall thickening or pericolon ic inflammatory changes.Normal appendix. URINARY BLADDER: Underdistended but grossly unremarkable. REPRODUCTIVE ORGANS: No pathologic process. MUSCULOSKELETAL: Left femoral screw. ADDITIONAL FINDINGS: None. IMPRESSION: No acute findings within the abdomen or pelvis. No appendicitis. Incidental findings as noted above.
--- NOTE | 2025-04-25 09:25 | ER ---
Nurse's Notes [facility] Name: Holger Lee Age: 24 yrs Sex: Male : 2000 Arrival Date: 04/25/2025 Time: 07:09 Bed 20 Private MD: Diagnosis: Esophagitis, unspecified Presentation: 04/25 07:20 Chief complaint: Patient states: Diarrhea on Saturday, lower abdominal pain started jl7 yesterday, denies N/V. Coronavirus screen: At this time, the client does not indicate any symptoms associated with coronavirus-19. Ebola Screen: No symptoms or risks identified at this time. Initial Sepsis Screen: Does the patient meet any 2 criteria? No. Patient's initial sepsis screen is negative. Does the patient have a suspected source of infection? No. Patient's initial sepsis screen is negative. Risk Assessment: Do you want to hurt yourself or someone else? Patient reports no desire to harm self or others. Onset of symptoms is unknown. 07:20 Method Of Arrival: Ambulatory [facility] 07:20 Acuity: RUBY 3 jl7 Triage Assessment: 07:24 General: Appears in no apparent distress. uncomfortable, Behavior is cooperative, jl7 anxious, restless. Pain: Complains of pain in abdomen Pain currently is 6 out of 10 on a pain scale. GI: Reports lower abdominal pain. Historical: - Allergies: 07:24 No Known Allergies; jl7 - PMHx: 07:24 Bronchitis; jl7 - Immunization history:: Adult Immunizations unknown. - Infectious Disease History:: Denies. - Social history:: Smoking status: Patient denies any tobacco usage or history of. Screenin:35 [facility] ED Fall Risk Assessment (Adult) History of falling in the last 3 months, bp including since admission No falls in past 3 months (0 pts) Confusion or Disorientation No (0 pts) Intoxicated or Sedated No (0 pts) Impaired Gait No (0 pts) Mobility Assist Device Used No (0 pt) Altered Elimination No (0 pt) Score/Fall Risk Level 0 - 2 = Low Risk Oriented to surroundings. Abuse screen: Denies threats or abuse. Denies injuries from another. Nutritional screening: No deficits noted. Tuberculosis screening: No symptoms or risk factors identified. Assessment: 07:30 General: SEE TRIAGE NOTE. bp 09:35 Reassessment: Patient appears in no apparent distress at this time. Patient is alert, bp oriented x 3, equal unlabored respirations, skin warm/dry/pink. Vital Signs: 07:20 BP 158 / 92; Pulse 96; Resp 17; Temp 97.7; Pulse Ox 98% ; Weight 90.72 kg; Height 5 ft. jl7 10 in. ; Pain 6/10; 09:35 BP 139 / 79; Pulse 87; Resp 16; Pulse Ox 98% ; bp 07:20 Body Mass Index 28.70 (90.72 kg, 177.8 cm) jl7 07:20 Pain Scale: Adult 7 ED Course: 07:14 Patient arrived in ED. gl 07:24 Triage completed. jl7 07:24 Kaylah Gipson MD is Attending Physician. sw6 07:24 Arm band placed on right wrist. jl7 07:25 Ashley Ramirez RN is Primary Nurse. ss12 07:28 Primary Nurse role handed off by Ashley Ramirez RN bp 07:28 Jordan Hall, ABDIRASHID is Primary Nurse. bp 08:59 CT Abd/Pelvis - IV Contrast Only In Process Unspecified. EDMS 09:24 Dulce Rivera MD is Referral Physician. sw6 09:35 Patient has correct armband on for positive identification. bp 09:35 No provider procedures requiring assistance completed. IV discontinued, intact, bp bleeding controlled, No redness/swelling at site. Pressure dressing applied. Administered Medications: 08:01 Drug: Famotidine IVP 20 mg IVP once; dilute with 10 mL 0.9% NaCl; give over 2 minutes bp Route: IVP; Site: right forearm; 09:33 Follow up: Response: No adverse reaction bp 08:01 Drug: Ondansetron IVP 4 mg IVP once; over 2 minutes Route: IVP; Site: right forearm; bp 09:33 Follow up: Response: No adverse reaction bp 08:01 Drug: morphine IVP or IV 4 mg IVP once over 4 mins Route: IVP; Infused Over: 4 mins; bp Site: right forearm; 09:33 Follow up: Response: No adverse reaction bp 08:01 Drug: NS 0.9% IV 1000 ml IV at 1 bolus Per protocol; to be given as a bolus over 60 bp minutes Route: IV; Rate: 1 bolus; Site: right forearm; 09:33 Follow up: IV Status: Completed infusion bp Medication: 09:35 VIS not applicable for this client. bp Outcome: 09:24 Discharge ordered by . jesus 09:35 Discharged to home ambulatory, bp 09:35 Condition: stable 09:35 Discharge instructions given to patient, Instructed on discharge instructions, follow up and referral plans. Demonstrated understanding of instructions, follow-up care, 09:40 Patient left the ED. bp Signatures: Dispatcher [employer] EDAaron Emerson RN RN jl7 Jordan Hall RN RN bp Kaylah Gipson MD MD sw6 Luann Dipo, Reg Reg gl Ashley Ramirez, RN RN ss12
--- NOTE | 2025-04-25 09:25 | EDPHYS ---
Physician Documentation [facility] Name: Holger Lee Age: 24 yrs Sex: Male : 2000 Arrival Date: 04/25/2025 Time: 07:09 Bed 20 Private MD: ED Physician Kaylah Gipson HPI: 04/25 07:35 This 24 yrs old Male presents to ER via Ambulatory with complaints of sw6 Abdominal Pain, Groin Pain. 07:38 The patient presents with abdominal pain that is diffuse. Onset: The symptoms/episode sw6 began/occurred several weeks ago. The symptoms do not radiate. Associated signs and symptoms: Pertinent positives: diarrhea, Pertinent negatives: nausea and vomiting. The patient has not experienced similar symptoms in the past. The patient presents from home for eval for abdominal pain that has been coming and going for about the past 3 weeks. He reports it started after he had a crawfish burger about 3 weeks ago. no n/v. He does have diarrhea. no sick contacts. no meds taken for his sx. no dysuria or hematuria. no prior abdominal surgeries. he reports his pain did seem to get worse earlier today. 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 today is Saturday. no h/o htn or dm. no fevers. here for eval. . Historical: - Allergies: 07:24 No Known Allergies; jl7 - PMHx: 07:24 Bronchitis; jl7 - Immunization history:: Adult Immunizations unknown. - Infectious Disease History:: Denies. - Social history:: Smoking status: Patient denies any tobacco usage or history of. ROS: 07:35 Constitutional: Negative for fever, chills, and weight loss, Cardiovascular: Negative sw6 for chest pain, palpitations, and edema, Respiratory: Negative for shortness of breath, cough, wheezing, and pleuritic chest pain, MS/Extremity: Negative for injury and deformity, 07:35 Abdomen/GI: Positive for abdominal pain, diarrhea, Negative for nausea, vomiting, 07:35 All other systems are negative, Exam: 07:35 Cardiovascular: Rate: normal, Rhythm: regular, Pulses: no pulse deficits are sw6 appreciated, 07:35 Respiratory: the patient does not display signs of respiratory distress, Respirations: normal, Breath sounds: are clear throughout, 07:35 Abdomen/GI: Inspection: abdomen appears normal, Bowel sounds: normal, in all quadrants, Palpation: soft, in all quadrants, mild abdominal tenderness, in all quadrants, rebound tenderness, is not appreciated, 07:35 Musculoskeletal/extremity: Extremities: all appear grossly normal, with no appreciated pain with palpation, ROM: full active range of motion, in all extremities, 07:35 Skin: Appearance: Color: normal in color, 07:35 Neuro: Exam negative for acute changes, focal neuro deficits, 09:25 Constitutional: This is a well developed, well nourished patient who is awake, alert, sw6 and in no acute distress. Vital Signs: 07:20 BP 158 / 92; Pulse 96; Resp 17; Temp 97.7; Pulse Ox 98% ; Weight 90.72 kg; Height 5 ft. jl7 10 in. ; Pain 6/10; 09:35 BP 139 / 79; Pulse 87; Resp 16; Pulse Ox 98% ; bp 07:20 Body Mass Index 28.70 (90.72 kg, 177.8 cm) jl7 07:20 Pain Scale: Adult jl7 MDM: 07:30 Medical Screening Exam initiated sw6 07:35 Differential diagnosis: appendicitis, Cholelithiasis, diverticulitis, gastritis, sw6 gastroesophageal reflux disease, Irritable bowel syndrome, non-specific abd pain, Peptic Ulcer Disease. 09:22 Data reviewed: lab test result(s), amylase and lipase, CBC, electrolytes, radiologic sw6 studies, CT scan. ED course: The patient is doing well in the ER. His laboratory studies are unremarkable. The CT of his abdomen pelvis shows esophagitis but no other acute intra-abdominal pathology. The patient has already stopped the antibiotics that he was prescribed by his wire insulator and reports this alone has started to make him feel better. He was advised to contact his wire insulator tomorrow to inform them that he did stop the antibiotics. He is currently on omeprazole reports he has been on that daily for proxy 1 week. Advised him that this will continue to help make him feel better. He will also need to avoid foods that are very acidic or spicy such as orange juice, spaghetti sauce or pizza. He has had endoscopy in the past but reports it has been several years. He may benefit from a repeat examination. He remained stable here in the ER and is okay for discharge home with outpatient GI follow-up in 1 week.. 04/25 07:35 Order name: CBC with Diff; Complete Time: 08:19 04/25 08:19 Interpretation: Within normal limits. 04/25 07:35 Order name: CMP; Complete Time: 08:43 04/25 08:43 Interpretation: Within normal limits. 04/25 07:35 Order name: Lipase; Complete Time: 08:43 04/25 08:44 Interpretation: Within normal limits. 04/25 07:35 Order name: CT Abd/Pelvis - IV Contrast Only; Complete Time: 09:07 04/25 09:07 Interpretation: No acute disease except: Esophagitis. 04/25 07:35 Order name: IV Saline Lock; Complete Time: 08:01 04/25 07:35 Order name: Labs collected and sent; Complete Time: 08:01 Administered Medications: 08:01 Drug: Famotidine IVP 20 mg IVP once; dilute with 10 mL 0.9% NaCl; give over 2 minutes bp Route: IVP; Site: right forearm; 09:33 Follow up: Response: No adverse reaction bp 08:01 Drug: Ondansetron IVP 4 mg IVP once; over 2 minutes Route: IVP; Site: right forearm; bp 09:33 Follow up: Response: No adverse reaction bp 08:01 Drug: morphine IVP or IV 4 mg IVP once over 4 mins Route: IVP; Infused Over: 4 mins; bp Site: right forearm; 09:33 Follow up: Response: No adverse reaction bp 08:01 Drug: NS 0.9% IV 1000 ml IV at 1 bolus Per protocol; to be given as a bolus over 60 bp minutes Route: IV; Rate: 1 bolus; Site: right forearm; 09:33 Follow up: IV Status: Completed infusion bp Disposition Summary: 04/25/25 09:24 Discharge Ordered Notes: Location: [facility] Problem: chronic sw6 Symptoms: have improved sw6 Condition: Stable sw6 Diagnosis - Esophagitis, unspecified sw6 Followup: - With: Dulce Rivera MD - When: 5 - 6 days - Reason: Recheck today's complaints Discharge Instructions: - Discharge Summary Sheet - Esophagitis 6 Forms: - Medication Reconciliation Form sw6 - Antibiotic Education 6 - Prescription Opioid Use 6 - Patient Portal Instructions 6 - Leadership Thank You Letter Signatures: Dispatcher [employer] Aaron Julio, RN RN jl7 Jordan Hall RN RN Kaylah Mchugh MD MD 6
[2025-04-25 09:44] VITALS: TEMP 97.7; O2SAT 98
[2025-04-25 09:45] VITALS: BP 139/79
== END 2025-04-25 09:40 | disposition home or self-care (01) ==
LOC: ER 07:09
DX: K20.90 Esophagitis, unspecified without bleeding (principal)
CPT/HCPCS: 96361; 85025; 36415; 83690; 80053; 74177; 96375; 96374; 99284; Q9967; J2405; J7030